=== PATIENT | male | born 1970 | race Caucasian/White ===

== ENCOUNTER → 2021-11-21 | Outpatient (REF) | LOC: M PLAIMG 08:09 | PROVIDERS: ATTEND Internal Medicine | DX: R06.02 Shortness of breath (principal) ==

== ENCOUNTER → 2022-03-05 | Outpatient (REF) | payer OTHER | LOC: M SMT 13:37 | PROVIDERS: ATTEND Urology | DX: Z30.2 Encounter for sterilization (principal) ==